=== PATIENT | female | born 1965 | race African-American/Black ===

== ENCOUNTER 2018-05-10 20:34 | Emergency (ER) | payer MEDICARE, MEDICAID ==
--- NOTE | 2018-05-10 21:19 | EKG REPORT ---
SEVERITY:- ABNORMAL ECG - ATRIAL FIBRILLATION CONSIDER ANTEROSEPTAL INFARCT NONSPECIFIC T ABNORMALITIES, LATERAL LEADS : Confirmed by: Diaz Curiel MD 10-May-2018 21:19:10
[2018-05-10] MEDS ORDERED: IPRATROPIUM/ALBUTEROL 0.5-2.5 MG/3 ML AMPUL NEB ONE (22:09)
[2018-05-10 22:46] LABS: ALANINE AMINOTRANSFERASE 92 U/L (9-52); ALBUMIN 2.9 g/dL (3.5-5.0); ALKALINE PHOSPHATASE 69 U/L (38-126); ANION GAP 18 (5-19); ASPARTATE AMINO TRANSFERASE 47 U/L (14-36); BILIRUBIN,DIRECT 0.7 mg/dL (0.0-0.4); BILIRUBIN,TOTAL 0.7 mg/dL (0.2-1.3); BLOOD UREA NITROGEN 99 mg/dL (7-20); CALCIUM 8.1 mg/dL (8.4-10.2); CARBON DIOXIDE 22 mmol/L (22-30); CHLORIDE 100 mmol/L (98-107); GLUCOSE 94 mg/dL (75-110); POTASSIUM 4.3 mmol/L (3.6-5.0); TOTAL PROTEIN 5.8 g/dL (6.3-8.2)
[2018-05-10 22:52] LABS: ABSOLUTE EOSINOPHILS # (AUTO) 0.1 10^3/uL (0.0-0.6); ABSOLUTE LYMPHOCYTES (AUTO) 1.5 10^3/uL (0.5-4.7); ABSOLUTE MONOCYTES (AUTO) 0.9 10^3/uL (0.1-1.4); ABSOLUTE NEUT (AUTO) 4.8 10^3/uL (1.7-8.2); BASOPHILS % (AUTO) 0.4 % (0-2); EOSINOPHILS % (AUTO) 1.1 % (0-6); HEMATOCRIT 31.9 % (36.0-47.0); HEMOGLOBIN 9.8 g/dL (12.0-15.5); LYMPHOCYTES % (AUTO) 20.3 % (13-45); MEAN CORPUSCULAR HEMOGLOBIN 24.4 pg (27.0-33.4); MEAN CORPUSCULAR HGB CONC 30.7 g/dL (32.0-36.0); MEAN CORPUSCULAR VOLUME 80 fl (80-97); MONOCYTES % (AUTO) 12.5 % (3-13); PLATELET COUNT 184 10^3/uL (150-450); RED BLOOD COUNT 4.01 10^6/uL (3.72-5.28); SEGMENTED NEUTROPHILS % (AUTO) 65.7 % (42-78); TOTAL CELLS COUNTED % (AUTO) 100 %; WHITE BLOOD COUNT 7.3 10^3/uL (4.0-10.5)
[2018-05-10] MEDS ORDERED: DILTIAZEM HCL INJ 25 MG/5 ML VIAL IV ONE (22:57)
[2018-05-10] MEDS ORDERED: DILTIAZEM HCL/D5W 125 MG/125 ML RTUINJ IV PRN (22:57)
[2018-05-10] MEDS ORDERED: LIDOCAINE 2% INJ-PF (20 MG/ML) 10 ML AMPUL NEB ONE (22:58)
[2018-05-10] MEDS ORDERED: BENZONATATE 100 MG CAPSULE PO ONE (22:58)
--- NOTE | 2018-05-10 22:58 | ER Document Report ---
ED General - General Chief Complaint: Chest Pain Stated Complaint: CHEST PAIN Time Seen by Provider: 05/10/18 22:08 Notes: Patient is a 53-year-old female with a past medical history of morbid obesity, end-stage renal disease with dialysis dependence currently does home peritoneal dialysis, who presents with 3-4 days of progressively worsening shortness of breath, cough and increasing edema in her bilateral lower extremity's. Patient states that since onset of her symptoms she has been compliant with her peritoneal dialysis regimen but admits to the prior 1 week that she had been noncompliant on multiple days. She states that her symptoms feel very similar to when she has become volume overloaded in the past. She did see her primary care doctor regarding today's concerns, was diagnosed with an upper respiratory tract infection. She denies any associated chest pain, vomiting, or syncope. The patient otherwise struggles to give history due to her degree of shortness of breath. TRAVEL OUTSIDE OF THE [place] IN LAST 30 DAYS: No - Related Data Allergies/Adverse Reactions: vancomycin Allergy (Verified 05/10/18 20:41) Past Medical History - General Information source: Patient - Social History Smoking Status: Never Smoker Frequency of alcohol use: None Drug Abuse: None Lives with: Family Family History: Reviewed & Not Pertinent Patient has suicidal ideation: No Patient has homicidal ideation: No - Past Medical History Cardiac Medical History: Reports: Hx Congestive Heart Failure, Hx Hypercholesterolemia, Hx Hypertension Pulmonary Medical History: Reports: Hx Bronchitis, Hx Pneumonia Renal/ Medical History: Reports: Hx Peritoneal Dialysis Review of Systems - Review of Systems Notes: Constitutional: Negative for fever. HENT: Negative for sore throat. Eyes: Negative for visual changes. Cardiovascular: Negative for chest pain. Respiratory: Positive for shortness of breath. Gastrointestinal: Negative for abdominal pain, vomiting or diarrhea. Genitourinary: Negative for dysuria. Musculoskeletal: Positive for bilateral lower extremity edema Skin: Negative for rash. Neurological: Negative for headaches, weakness or numbness. 10 point ROS negative except as marked above and in HPI. Physical Exam - Vital signs Vitals: Temp Pulse Resp BP Pulse Ox 99.3 F 65 20 120/85 97 05/10/18 21:07 05/10/18 21:07 05/10/18 21:07 05/10/18 21:07 05/10/18 21:07 Interpretation: Tachycardic, Tachypneic Notes: PHYSICAL EXAMINATION: GENERAL: Appears unwell, unable to speak in full sentences due to shortness of breath HEAD: Atraumatic, normocephalic. EYES: Pupils equal round and reactive to light, extraocular movements intact, sclera anicteric, conjunctiva are normal. ENT: nares patent, oropharynx clear without exudates. Moist mucous membranes. NECK: Normal range of motion, supple without lymphadenopathy LUNGS: Moderate respiratory distress, breathing approximately 30 times per minutes. Crackles at the bases bilaterally. Globally diminished air movement throughout. HEART: Irregular regular tachycardia without murmurs ABDOMEN: Soft, nontender, normoactive bowel sounds. No guarding, no rebound. No masses appreciated. EXTREMITIES: Normal range of motion, 4+ pitting edema in the bilateral lower extremities that is equal and symmetric. NEUROLOGICAL: No focal neurological deficits. Moves all extremities spontaneously and on command. PSYCH: Quite anxious SKIN: Warm, Dry, normal turgor, no rashes or lesions noted. Course - Re-evaluation Re-evalutation: 05/10/18 22:57 Patient presents complaining of severe shortness of breath, cough, found to be moderately hypoxic requiring 2 L nasal oxygen to maintain saturations above 92% . She is also in atrial fibrillation with rapid ventricular response and denies any known prior history of atrial fibrillation. Current rates in the 130s. Diltiazem bolus followed by infusion will be initiated. The patient normally gives herself peritoneal dialysis but admits noncompliance with this regiment and there is concern for volume overload. She has market edema in her bilateral lower extremities, 4+ bilaterally that is equal and symmetric. She denies chest pain and her clinical history is not consistent with ACS or an acute pulmonary embolus. Primary concern is that the patient has baseline congestive heart failure which may have been acutely worsened in the setting of missed peritoneal dialysis as well as new onset atrial fibrillation. Her initial laboratories show chronic kidney failure, no significant electrolyte abnormalities that warrant immediate dialysis. Awaiting chest x-ray. Will continue to reassess at regular intervals. 05/10/18 23:20 Chest x-ray does show market cardiomegaly, vascular congestion. Patient does continue to be quite tachypneic, borderline hypoxic. Will place on BiPAP. We unfortunately do not have nephrology coverage 05/11/18 01:08 Patient feels much improved on BiPAP. Improve rate control current heart rate 116 on diltiazem infusion. Blood pressure 119/90. Will contact [facility] for consideration of transfer given the absence of nephrology coverage. 05/11/18 01:31 Patient has continued to have clinical improvement. [facility] has a greater than 48 hour wait list so I have contacted [facility], spoken with Dr. Spring the hospitalist on-call who has accepted the patient given the absence of nephrology coverage here. 05/11/18 02:43 Patient continues to rest comfortably on BiPAP. Awaiting transport. Rate much improved on diltiazem infusion. - Vital Signs Vital signs: Temp Pulse Resp BP Pulse Ox 99.3 F 65 22 H 110/70 97 05/10/18 21:07 05/10/18 21:07 05/11/18 02:26 05/11/18 02:26 05/11/18 02:26 - Laboratory Result Diagrams: 05/10/18 22:18 05/10/18 22:18 Laboratory results interpreted by me: 05/10/18 05/10/18 05/10/18 22:18 22:18 22:18 Hgb 9.8 L Hct 31.9 L MCH 24.4 L MCHC 30.7 L RDW 20.0 H BUN 99 H Creatinine 19.63 H Est GFR ( Amer) 2 L Est GFR (Non-Af Amer) 2 L Calcium 8.1 L Direct Bilirubin 0.7 H AST 47 H ALT 92 H NT-Pro-B Natriuret Pep 38153 H Total Protein 5.8 L Albumin 2.9 L - Diagnostic Test Radiology reviewed: Image reviewed, Reports reviewed Radiology results interpreted by me: 05/11/18 02:43 Chest x-ray: Very prominent cardiomegaly, vascular congestion - EKG Interpretation by Me Additional EKG results interpreted by me: 05/11/18 02:43 Atrial fibrillation with rapid ventricular response. Rate 135. No ST elevations or depressions. QTC is 462. Critical Care Note - Critical Care Note Total time excluding time spent on procedures (mins): 38 Comments: Critical care time spent obtaining history from patient or surrogate, discussions with consultants, development of treatment plan with patient or surrogate, evaluation of patient's response to treatment, examination of patient , ordering and performing treatments and interventions, ordering and review of laboratory studies, re-evaluation of patient's condition, ordering and review of radiographic studies and review of old charts Discharge - Discharge Clinical Impression: Atrial fibrillation with rapid ventricular response, Dependence on peritoneal dialysis, Dialysis patient, noncompliant, Respiratory distress Volume overload Qualifiers: Hypervolemia type: unspecified Qualified Code(s): E87.70 - Fluid overload, unspecified Condition: Fair Disposition: [facility]
[2018-05-10 23:13] LABS: TROPONIN I 0.128 ng/mL
--- NOTE | 2018-05-10 23:29 | RADIOLOGY REPORT (SQ) ---
EXAM DESCRIPTION: XR CHEST 1 VIEW COMPLETED DATE/TME: 05/10/2018 22:09 CLINICAL HISTORY: 53 years Female, sob COMPARISON: None. NUMBER OF VIEWS/TECHNIQUE: 1/AP, limitation: Blur-motion artifact FINDINGS: Moderate lung volume, no gross parenchymal defect, blur artifact, moderate-severe enlargement of the cardiac silhouette, and intact bony thorax. IMPRESSION: Moderate to severe cardiac enlargement. Limitation.
[2018-05-10] MEDS ORDERED: DILTIAZEM HCL/D5W 125 MG/125 ML RTUINJ IV ONE (23:36)
[2018-05-11 00:13] LABS: ANISOCYTOSIS 2+; OVALOCYTES 3+; POIKILOCYTOSIS 1+; SCHISTOCYTES 2+; TARGET CELLS SLIGHT
[2018-05-11 00:14] LABS: PLATELET COMMENT ADEQUATE
[2018-05-11 03:11] VITALS: BP 124/100
== END 2018-05-11 04:00 | disposition short-term general hospital (02) ==
LOC: ER 20:34
DX: I13.11 Hypertensive heart and chronic kidney disease without heart failure, with stage 5 chronic kidney disease, or end stage renal disease (principal); N18.6 End stage renal disease; E87.70 Fluid overload, unspecified; Z91.15 Patient's noncompliance with renal dialysis; I48.91 Unspecified atrial fibrillation; R06.02 Shortness of breath; R09.02 Hypoxemia; R00.0 Tachycardia, unspecified; R05 Cough; Z88.1 Allergy status to other antibiotic agents
CPT/HCPCS: 93005; 96376; 99291; 96365; 96366; 36415; 85025; 80053; 84484; 83880; 71045; 93010; 94660 ×2; A9270; J3490 ×3